=== PATIENT | male | born 1960 | race Caucasian/White ===

== ENCOUNTER 2017-01-16 12:15 | Emergency (ER) | payer OTHER ==
[~2017-01-16] VITALS: Wt 81.6 kg
[~2017-01-16 12:15] MED LIST: ACCUNEB 0.1.25 MG/1 INH; ALBUTEROL0.09 MG/A2 INH; AMOXICILLIN500 MG PO; ANAPROX DS550 MG PO; ASMANEX220 MCG INH; ATIVAN PO; ATIVAN1 MG PO; BACTRIM DS 8001 TA1 PO; CELEXA20 MG PO; CEPHALEXIN500 M1 PO; CLARITIN10 MG PO; CLINDAMYCIN150 MG PO; DARVOCET N 1001 TAB PO; DIFLUCAN100 MG PO; ELIMITE 5%60 GM PO; FLEXERIL10 MG PO; FLEXERIL5 MG PO; FLONASE0.05 MG/AC NS; HYDROCODONE BIT1 T11 PO; KENALOG0.1% TP; LEVOFLOXACIN500 MG PO; LIBRIUM10 MG PO; LIPITOR PO; LISINOPRIL10 M1 PO; LOPRESSOR50 M1 PO; LOPRESSOR50 MG PO; MEDROL DOSEPAK4 MG PO; METOPROLOL100 MG PO; METOPROLOL50 MG PO; MOTRIN800 MG PO; NAPROSYN500 MG PO; NEURONTIN300 MG PO; NORVASC5 MG PO; PEPCID20 MG PO; PREDNICOT20 MG PO; PREDNISONE10 MG PO; PREDNISONE20 M1 PO; PREDNISONE20 MG PO; PREDNISONE50 MG PO; PRILOSEC20 MG PO; PRINIVIL10 MG PO; PROAIR HFA0.09 MG/AC INH; PROAIR HFA8.5 GM INH; ROBAXIN-750750 MG PO; ROBITUSSIN AC 110 ML PO; SIMVASTATIN40 MG PO; THIAMINE HCL50 MG PO; TRAMADOL HCL50 MG PO; TRIMOX500 MG PO; VIBRAMYCIN100 MG PO; VISTARIL25 MG PO; VISTARIL50 MG PO; VITAMIN D2000 IU PO; Ventolin 02.5 MG/3 M INH; ZITHROMAX Z PA250 MG PO; ZOFRAN ODT8 MG PO
[2017-01-16] MEDS ORDERED: CEPHALEXIN500 M1 PO (13:34)
== END 2017-01-16 13:20 | disposition home or self-care (01) ==
LOC: ED 12:15
DX: S61.211A Laceration without foreign body of left index finger without damage to nail, initial encounter (principal); S61.213A Laceration without foreign body of left middle finger without damage to nail, initial encounter; F17.200 Nicotine dependence, unspecified, uncomplicated; W45.8XXA Other foreign body or object entering through skin, initial encounter; Y93.89 Activity, other specified; Y92.9 Unspecified place or not applicable; Y99.9 Unspecified external cause status

== ENCOUNTER → 2017-08-01 | Outpatient (CLI) | payer OTHER | END | disposition home or self-care (01) | LOC: RAD 11:38 | DX: J44.9 Chronic obstructive pulmonary disease, unspecified (principal); I10 Essential (primary) hypertension; Z87.891 Personal history of nicotine dependence ==

== ENCOUNTER 2017-08-21 04:51 | Inpatient (IN) | payer OTHER ==
[2017-08-21] VITALS (14 sets, daily range): BP systolic 128–172; BP diastolic 78–119
[~2017-08-21] VITALS: Ht 182.9 cm; Wt 78.0 kg
--- NOTE | ~2017-08-21 | WRIGHTHP ---
[place], [place] PATIENT HISTORY AND PHYSICAL EXAM NAME: SULY CIFUENTES [facility] #: [id number] UNIT #: [id number] ROOM: 528 DOCTOR: MARIZOL DUBOIS MD BIRTHDATE: [birth year] DOS: 08/21/2017 HISTORY OF PRESENT ILLNESS: The patient has been admitted to hospital as an emergency admission with history of hypertension and excessive drinking. He came to the hospital with some chest pain and difficulty in breathing, and by the investigation found to be having hypertension and needed to be admitted to the hospital. PAST MEDICAL HISTORY: The patient has past history of hypertension and he is also having history of alcoholism, tobacco abuse, fracture of the right ankle, anxiety, neck veins , depression and GERD syndrome. He has also past history of recurring abscess on his body. PAST SURGICAL HISTORY: Past history of left inguinal hernia repair, history of right ankle repair. He has a vince put in his left leg, has plates in both sides of the ankle and left foot. It looks like he is getting into multiple injuries due to too much drinking. MEDICATIONS: He is taking Celexa 20 mg daily, Neurontin 300 mg 3 times daily, Prilosec 20 mg daily, metoprolol 50 mg daily. SOCIAL HISTORY: He drinks about 15-20 beers daily. He smoked 1 pack of cigarettes daily and I discussed with him to stop drinking and smoking, he is saying no, he has to continue, he loves to drink and smoke. FAMILY HISTORY: The patient lives alone. PHYSICAL EXAMINATION: VITAL SIGNS: Blood pressure on admission 172/96, pulse is 94, temperature is 99 and respiration is 20. HEENT: His ENT examination unremarkable. No glandular enlargement in the neck. Trachea is central. NECK: Veins are not distended. HEART: Somewhat tachycardic. No murmur. LUNGS: Showing increased expiration. No crepitation. ABDOMEN: Having some tenderness in the epigastrium. Liver and spleen not enlarged. No other area of tenderness. No mass palpable. LABORATORY DATA: His CBC showed white count 11,300 and other values are fairly satisfactorily. Protime is 10.5, normal. Comprehensive metabolic profile showed glucose 126, sodium is 125, lower than normal, potassium 3.4, lower than normal, chloride is 82, which is higher than normal, total protein is 8.5, albumin 4.5, bilirubin 1.1, SGOT 138, SGPT 93 due to excessive drinking, troponin level is normal. Chest x-ray shows no acute pulmonary disease and his blood pressure now is 153/57, pulse is 110, respirations 20, temperature is 98. DIAGNOSES: Alcohol abuse, tobacco abuse, hypertension, COPD, GERD syndrome and noncompliant behavior. PLAN OF TREATMENT: The patient will be admitted to the hospital. He will have [place], [place] PATIENT HISTORY AND PHYSICAL EXAM NAME: SULY CIFUENTES [facility] #: [id number] UNIT #: [id number] ROOM: 528 DOCTOR: MARIZOL DUBOIS MD BIRTHDATE: [birth year] folic acid, thiamine, lorazepam one tablet 6 hour p.r.n., sodium chloride IV, magnesium sulfate and metoprolol 50 mg daily. MARIZOL DUBOIS MD CM:HISPHYS:PATIENT HISTORY AND PHYSICAL EXAMINATION [id number] MARIZOL DUBOIS MD 08/21/17 1227 interface
[2017-08-21 05:15] LABS: BASO # 0.1 10*3/uL (0.0-0.1); BASO % 0.5 % (0.0-1.0); EOS # 0.2 10*3/uL (0.0-0.4); EOS % 1.3 % (1.0-4.0); HEMATOCRIT 43.2 % (42.0-52.0); HEMOGLOBIN 15.7 g/dl (14.0-18.0); LYMPH # 2.3 10*3/uL (1.3-4.4); LYMPH % 20.6 % (27.0-41.0); MEAN CELL VOLUME 92.3 fl (80.0-94.0); MEAN CORPUSCULAR HGB 33.5 pg (27.0-31.0); MEAN CORPUSCULAR HGB CONC 36.3 g/dl (33.0-37.0); MEAN PLATELET VOLUME 10.7 fl (9.6-12.3); MONO # 1.2 10*3/uL (0.1-1.0); NEUT # 7.4 10*3/uL (2.3-7.9); NEUT % 66.2 % (47.0-73.0); PLATELET COUNT AUTOMATED 187 10*3/uL (130-400); RED BLOOD COUNT 4.68 10*6/uL (4.50-5.90); RED CELL DISTRI WIDTH 12.8 % (0-14.5); WHITE BLOOD COUNT 11.3 10*3/uL (4.8-10.8)
[2017-08-21 05:23] LABS: ACT PARTIAL THROMBO TIME 27.4 SECONDS (20.8-31.5)
[2017-08-21 05:32] LABS: ALBUMIN 4.6 gm/dl (3.1-4.5); ALKALINE PHOSPHATASE 112 U/L (45-117); BUN 9 mg/dl (7-24); CHLORIDE 82 mmol/L (98-107); CREATININE 0.85 mg/dL (0.70-1.30); POTASSIUM 3.4 mmol/L (3.5-5.1); SGOT/AST 138 IU/L (3-35); SGPT/ALT 93 U/L (12-78); SODIUM 125 mmol/L (136-145); TOTAL PROTEIN 8.5 gm/dL (6.4-8.2)
[2017-08-21 05:35] LABS: TROPONIN I < 0.015 ng/ml (<0.045)
--- NOTE | 2017-08-21 09:18 | NUR ---
PATIENT ARRIVED ON UNIT EXPERIENCING DELERIUM TREMONS AND ADMITTED TO [facility] DRINKING OVER THE WEEKEND. STATED HE DRANK 18 BEERS ON TUESDAY AND TUESDAY. HE ALSO STATED THAT HE DRINKS 4 BEERS A DAY THROUGH THE WEEK. NOTIFIED DR. BARGER ABOUT PATIENTS CONDITION, SEE NEW ORDERS.
--- NOTE | 2017-08-21 10:00 | NUR ---
ATIVAN EFFECTIVE DT'S HAVE SUBSIDED.
--- NOTE | 2017-08-21 16:59 | NUR ---
PRN ATIVAN GIVEN FOR ALCOHOL WITHDRAWAL SYMPTOMS, SWEATING, DT'S. WILL MONITOR.
--- NOTE | 2017-08-21 17:08 | NUR ---
I CAUGHT PATIENT SMOKING IN THE BATHROOM. EXPLAINED TO HIM WHY THERE IS A NO SMOKING POLICY IN THE HOSPITAL. 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 PATIENT WAS ALSO EXPERIENCING HALLUCINATIONS BECAUSE HE HAD ME LOOK AT ALL OF THE WHITE BUGS BEHIND THE TOILET AND IN THE SHOWER.
--- NOTE | 2017-08-21 17:40 | NUR ---
PATIENT CAME UP TO THE NURSES STATION HOLD HIS IV SITE THAT WAS DRIPPING WITH BLOOD. HIS FRONT SIDE WAS COVERED IN BLOOD. HE TRACKED BLOOD DOWN THROUGH THE HALLWAY AND HIS ROOM WAS FILLED WITH PUDDLES OF BLOOD. HOUSEKEEPING WAS CALLED. AND I CALLED FOR THE CHARGE NURSE TO HELP. WHEN I WAS ASSESSING THE PATIENT I NOTICED THAT HIS IV LINE WAS BURNT AT THE CONNECTION SITE OF THE HEP LOCK. CATHERTER WAS REMOVED COMPLETELY INTACT. WITHIN MINUTES OF THAT EVENT, THE PATIENT LEFT AMA. PHYSICIAN WAS NOTIFIED, NURSING VENTILATION EQUIPMENT TENDER WAS NOTIFIED.
--- NOTE | 2017-08-21 18:15 | NUR ---
DR. DUBOIS AND NURSING DRUG COORDINATOR WAS NOTIFIED THAT PATIENT LEFT AMA.
== END 2017-08-21 17:40 | disposition left against medical advice (07) | DRG 641 ==
LOC: ED 04:51 → EDHOLD 08:27 → 5E 08:27
PROVIDERS: Student in an Organized Health Care Education/Training Program; ADMIT Internal Medicine
DX: E87.1 Hypo-osmolality and hyponatremia (principal); I45.81 Long QT syndrome; J44.9 Chronic obstructive pulmonary disease, unspecified; F10.10 Alcohol abuse, uncomplicated; K21.9 Gastro-esophageal reflux disease without esophagitis; F41.9 Anxiety disorder, unspecified; F17.210 Nicotine dependence, cigarettes, uncomplicated; I10 Essential (primary) hypertension; Z60.2 Problems related to living alone; Z53.21 Procedure and treatment not carried out due to patient leaving prior to being seen by health care provider; Z71.6 Tobacco abuse counseling; Z87.81 Personal history of (healed) traumatic fracture

== ENCOUNTER 2018-05-06 14:48 | Emergency (ER) | payer OTHER ==
[~2018-05-06] VITALS: Ht 182.8 cm; Wt 82.6 kg
[2018-05-06] MEDS ORDERED: Orphenadrine C100 MG PO (16:19)
[2018-05-06] MEDS ORDERED: NAPROSYN500 MG PO (16:19)
== END 2018-05-06 16:21 | disposition home or self-care (01) ==
LOC: ED 14:48
DX: S16.1XXA Strain of muscle, fascia and tendon at neck level, initial encounter (principal); J44.9 Chronic obstructive pulmonary disease, unspecified; F17.200 Nicotine dependence, unspecified, uncomplicated; Z79.899 Other long term (current) drug therapy; W11.XXXA Fall on and from ladder, initial encounter; Y93.89 Activity, other specified; Y92.89 Other specified places as the place of occurrence of the external cause; Y99.8 Other external cause status

== ENCOUNTER 2018-05-17 00:42 | Emergency (ER) | payer OTHER ==
[~2018-05-17] VITALS: Wt 72.6 kg
--- NOTE | ~2018-05-17 | EKG ---
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
[~2018-05-17 00:42] MED LIST changes: +Orphenadrine C100 MG PO
[2018-05-17 01:37] LABS: BILIRUBIN NEGATIVE (NEGATIVE); BLOOD 3+ (NEGATIVE); CLARITY SL CLOUDY (CLEAR); COLOR YELLOW (YELLOW); GLUCOSE NEGATIVE (NEGATIVE); KETONE NEGATIVE (NEGATIVE); LEUKO ESTERASE NEGATIVE (NEGATIVE); NITRITE NEGATIVE (NEGATIVE); UROBILINOGEN 0.2 E.U./dl (0.2-1.0)
[2018-05-17 01:49] LABS: URINE AMPHETAMINES < 1000 (1000ng/ml); URINE BARBITURATES < 200 (200ng/ml); URINE BENZODIAZEPINES < 200 (200ng/ml); URINE CANNABINOIDS (THC) < 50 (50ng/ml); URINE COCAINE < 300 (300ng/ml); URINE METHADONE < 300 (300ng/ml); URINE OPIATES < 300 (300ng/ml)
[2018-05-17 01:57] LABS: BASO # 0.2 10*3/uL (0.0-0.1); BASO % 0.9 % (0.0-1.0); EOS # 0.3 10*3/uL (0.0-0.4); EOS % 1.8 % (1.0-4.0); HEMATOCRIT 40.5 % (42.0-52.0); HEMOGLOBIN 13.9 g/dl (14.0-18.0); LYMPH # 3.5 10*3/uL (1.3-4.4); MEAN CELL VOLUME 97.8 fl (80.0-94.0); MEAN CORPUSCULAR HGB 33.6 pg (27.0-31.0); MEAN CORPUSCULAR HGB CONC 34.3 g/dl (33.0-37.0); MEAN PLATELET VOLUME 11.2 fl (9.6-12.3); NEUT # 12.3 10*3/uL (2.3-7.9); NEUT % 70.7 % (47.0-73.0); PLATELET COUNT AUTOMATED 160 10*3/uL (130-400); RED BLOOD COUNT 4.14 10*6/uL (4.50-5.90); RED CELL DISTRI WIDTH 12.8 % (0-14.5); WHITE BLOOD COUNT 17.3 10*3/uL (4.8-10.8)
[2018-05-17 01:59] LABS: URINE PHENCYCLIDINE < 25 (25ng/ml)
[2018-05-17 02:06] LABS: ACT PARTIAL THROMBO TIME 29.7 SECONDS (20.8-31.5); INTERNATIONAL NORM RATIO 0.9 (2.0-3.5)
[2018-05-17 02:15] LABS: ALKALINE PHOSPHATASE 102 U/L (45-117); BUN 6 mg/dl (7-24); CHLORIDE 93 mmol/L (98-107); CREATININE 0.72 mg/dL (0.70-1.30); POTASSIUM 3.7 mmol/L (3.5-5.1); SGOT/AST 337 IU/L (3-35); SGPT/ALT 184 U/L (12-78); SODIUM 131 mmol/L (136-145); TOTAL PROTEIN 7.5 gm/dL (6.4-8.2); TROPONIN I < 0.015 ng/ml (<0.045)
== END 2018-05-17 05:18 | disposition short-term general hospital (02) ==
LOC: ED 00:42
PROVIDERS: Student in an Organized Health Care Education/Training Program
DX: S06.5X0A Traumatic subdural hemorrhage without loss of consciousness, initial encounter (principal); S02.81XA Fracture of other specified skull and facial bones, right side, initial encounter for closed fracture; J96.90 Respiratory failure, unspecified, unspecified whether with hypoxia or hypercapnia; J93.0 Spontaneous tension pneumothorax; Z98.890 Other specified postprocedural states; Z79.899 Other long term (current) drug therapy; Y04.0XXA Assault by unarmed brawl or fight, initial encounter; Y93.89 Activity, other specified; Y92.89 Other specified places as the place of occurrence of the external cause; Y99.9 Unspecified external cause status

== ENCOUNTER 2018-09-07 08:30 | Emergency (ER) | payer OTHER ==
[~2018-09-07] VITALS: Ht 182.8 cm; Wt 80.7 kg
[2018-09-07] MEDS ORDERED: AEROECLIPSE II1 EACH MC (09:04)
[2018-09-07] MEDS ORDERED: AVPAK AZITHROM250 MG PO (09:04)
[2018-09-07] MEDS ORDERED: PREDNISONE50 MG PO (09:04)
[2018-09-07] MEDS ORDERED: LOTRIMIN 1%15 GM T (09:30)
== END 2018-09-07 09:59 | disposition home or self-care (01) ==
LOC: ED 08:30
DX: J44.1 Chronic obstructive pulmonary disease with (acute) exacerbation (principal); B35.9 Dermatophytosis, unspecified; F17.200 Nicotine dependence, unspecified, uncomplicated; Z79.899 Other long term (current) drug therapy

== ENCOUNTER → 2018-11-09 | Outpatient (CLI) | payer OTHER ==
[~2018-11-09] MED LIST changes: +AEROECLIPSE II1 EACH MC; +AVPAK AZITHROM250 MG PO; +LOTRIMIN 1%15 GM T
[2018-11-09 08:03] LABS: ALBUMIN 3.9 gm/dl (3.1-4.5); ALKALINE PHOSPHATASE 71 U/L (45-117); BUN 7 mg/dl (7-24); CHLORIDE 105 mmol/L (98-107); CREATININE 0.85 mg/dL (0.70-1.30); POTASSIUM 4.3 mmol/L (3.5-5.1); SGOT/AST 18 IU/L (3-35); SGPT/ALT 22 U/L (12-78); SODIUM 142 mmol/L (136-145); TOTAL PROTEIN 7.5 gm/dL (6.4-8.2)
[2018-11-10 08:14] LABS: HEPATITIS B SURFACE AG Negative (Negative); HEPATITIS C VIRUS ANTIBODY 0.1 s/co (0.0-0.9)
== END | disposition home or self-care (01) ==
LOC: LAB 07:08 → US 07:30
PROVIDERS: Internal Medicine
DX: K76.0 Fatty (change of) liver, not elsewhere classified (principal); M25.511 Pain in right shoulder; W19.XXXA Unspecified fall, initial encounter

== ENCOUNTER → 2018-11-16 | Outpatient (CLI) | payer OTHER ==
[2018-11-16 10:28] LABS: BASO # 0.1 10*3/uL (0.0-0.1); BASO % 1.5 % (0.0-1.0); EOS # 0.6 10*3/uL (0.0-0.4); EOS % 6.9 % (1.0-4.0); HEMATOCRIT 44.8 % (42.0-52.0); HEMOGLOBIN 14.8 g/dl (14.0-18.0); LYMPH # 3.6 10*3/uL (1.3-4.4); LYMPH % 42.3 % (27.0-41.0); MEAN CELL VOLUME 99.8 fl (80.0-94.0); MEAN PLATELET VOLUME 11.6 fl (9.6-12.3); MONO % 11.3 % (3.0-9.0); NEUT # 3.2 10*3/uL (2.3-7.9); NEUT % 37.8 % (47.0-73.0); PLATELET COUNT AUTOMATED 183 10*3/uL (130-400); RED BLOOD COUNT 4.49 10*6/uL (4.50-5.90); RED CELL DISTRI WIDTH 12.4 % (0-14.5); WHITE BLOOD COUNT 8.5 10*3/uL (4.8-10.8)
== END | disposition home or self-care (01) ==
LOC: LAB 10:05
PROVIDERS: Internal Medicine
DX: J18.1 Lobar pneumonia, unspecified organism (principal); D75.1 Secondary polycythemia; I10 Essential (primary) hypertension; J44.9 Chronic obstructive pulmonary disease, unspecified; F17.210 Nicotine dependence, cigarettes, uncomplicated

== ENCOUNTER 2019-03-07 13:08 | Emergency (ER) | payer OTHER ==
[~2019-03-07] VITALS: Ht 182.8 cm; Wt 82.6 kg
[2019-03-07] MEDS ORDERED: IBUPROFEN600 MG PO (18:06)
[2019-03-07] MEDS ORDERED: ROBAXIN500 M1 PO (18:06)
== END 2019-03-07 18:15 | disposition home or self-care (01) ==
LOC: ED 13:08
DX: S13.4XXA Sprain of ligaments of cervical spine, initial encounter (principal); M62.838 Other muscle spasm; Z79.899 Other long term (current) drug therapy; W18.31XA Fall on same level due to stepping on an object, initial encounter; Y93.89 Activity, other specified; Y92.89 Other specified places as the place of occurrence of the external cause; Y99.8 Other external cause status

== ENCOUNTER 2019-05-05 22:22 | Emergency (ER) | payer OTHER ==
[~2019-05-05] VITALS: Ht 182.8 cm; Wt 68.0 kg
--- NOTE | ~2019-05-05 | EKG ---
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
[~2019-05-05 22:22] MED LIST changes: +IBUPROFEN600 MG PO; +ROBAXIN500 M1 PO
[2019-05-05 23:03] LABS: HEMATOCRIT 39.3 % (42.0-52.0); HEMOGLOBIN 13.4 g/dl (14.0-18.0); MEAN CORPUSCULAR HGB 33.1 pg (27.0-31.0); MEAN CORPUSCULAR HGB CONC 34.1 g/dl (33.0-37.0); MEAN PLATELET VOLUME 10.8 fl (9.6-12.3); PLATELET COUNT AUTOMATED 167 10*3/uL (130-400); RED BLOOD COUNT 4.05 10*6/uL (4.50-5.90); RED CELL DISTRI WIDTH 13.3 % (0-14.5); WHITE BLOOD COUNT 11.3 10*3/uL (4.8-10.8)
[2019-05-05 23:14] LABS: ACT PARTIAL THROMBO TIME 24.8 SECONDS (20.0-32.1)
[2019-05-05 23:20] LABS: ALBUMIN 3.5 gm/dl (3.1-4.5); ALKALINE PHOSPHATASE 75 U/L (45-117); BUN 11 mg/dl (7-24); CHLORIDE 112 mmol/L (98-107); CREATININE 0.79 mg/dL (0.70-1.30); POTASSIUM 3.7 mmol/L (3.5-5.1); SGOT/AST 54 IU/L (3-35); SGPT/ALT 37 U/L (12-78); SODIUM 145 mmol/L (136-145); TOTAL PROTEIN 6.9 gm/dL (6.4-8.2)
[2019-05-05 23:21] LABS: BASOPHILS 1 % (0-1); TOTAL CELLS COUNTED 100 #CELLS
[2019-05-05 23:22] LABS: PLATELET SUFFICIENCY NORMAL (NORMAL)
[2019-05-05 23:24] LABS: TROPONIN I < 0.015 ng/ml (<0.045)
== END 2019-05-05 23:10 | disposition left against medical advice (07) ==
LOC: ED 22:22
PROVIDERS: Emergency Medicine Emergency Medical Services
DX: R07.89 Other chest pain (principal); F10.129 Alcohol abuse with intoxication, unspecified; J44.9 Chronic obstructive pulmonary disease, unspecified; I25.10 Atherosclerotic heart disease of native coronary artery without angina pectoris; F17.210 Nicotine dependence, cigarettes, uncomplicated; Z79.899 Other long term (current) drug therapy; Z79.82 Long term (current) use of aspirin

== ENCOUNTER 2019-11-23 15:30 | Emergency (ER) | payer OTHER ==
[~2019-11-23] VITALS: Ht 185.4 cm; Wt 78.0 kg
== END 2019-11-23 16:53 | disposition left against medical advice (07) ==
LOC: ED 15:30
DX: S00.03XA Contusion of scalp, initial encounter (principal); K21.9 Gastro-esophageal reflux disease without esophagitis; J44.9 Chronic obstructive pulmonary disease, unspecified; I10 Essential (primary) hypertension; Z79.899 Other long term (current) drug therapy; W18.39XA Other fall on same level, initial encounter; Y93.01 Activity, walking, marching and hiking; Y92.89 Other specified places as the place of occurrence of the external cause; Y99.8 Other external cause status

== ENCOUNTER 2020-06-24 21:27 | Emergency (ER) | payer OTHER | END 2020-06-25 09:02 | disposition home or self-care (01) | LOC: ED 21:27 | DX: S01.01XA Laceration without foreign body of scalp, initial encounter (principal); Z79.899 Other long term (current) drug therapy; X58.XXXA Exposure to other specified factors, initial encounter; Y93.89 Activity, other specified; Y92.89 Other specified places as the place of occurrence of the external cause; Y99.8 Other external cause status ==

== ENCOUNTER 2020-12-30 19:36 | Inpatient (IN) | payer OTHER ==
[~2020-12-30] VITALS: Ht 185.4 cm; Wt 65.5 kg
[2020-12-30 19:49] VITALS: BP 147/104
[2020-12-30 19:55] LABS: BASO # 0.1 10*3/uL (0.0-0.1); BASO % 1.3 % (0.0-1.0); EOS # 0.1 10*3/uL (0.0-0.4); EOS % 0.9 % (1.0-4.0); HEMATOCRIT 43.8 % (42.0-52.0); LYMPH # 2.4 10*3/uL (1.3-4.4); LYMPH % 27.7 % (27.0-41.0); MEAN CELL VOLUME 95.6 fl (80.0-94.0); MEAN CORPUSCULAR HGB 33.4 pg (27.0-31.0); MEAN CORPUSCULAR HGB CONC 34.9 g/dl (33.0-37.0); MEAN PLATELET VOLUME 10.7 fl (9.6-12.3); MONO # 0.9 10*3/uL (0.1-1.0); MONO % 10.4 % (3.0-9.0); NEUT # 5.1 10*3/uL (2.3-7.9); NEUT % 59.5 % (47.0-73.0); PLATELET COUNT AUTOMATED 189 10*3/uL (130-400); RED BLOOD COUNT 4.58 10*6/uL (4.50-5.90); RED CELL DISTRI WIDTH 12.7 % (0-14.5); WHITE BLOOD COUNT 8.5 10*3/uL (4.8-10.8)
[2020-12-30 20:09] LABS: ACT PARTIAL THROMBO TIME 30.2 SECONDS (20.0-32.1); INTERNATIONAL NORM RATIO 0.9 (2.0-3.5)
[2020-12-30 20:13] LABS: ALBUMIN 3.5 gm/dl (3.1-4.5); ALKALINE PHOSPHATASE 98 U/L (45-117); BUN 5 mg/dl (7-24); CHLORIDE 94 mmol/L (98-107); CREATININE 0.73 mg/dL (0.70-1.30); POTASSIUM 3.9 mmol/L (3.5-5.1); SGOT/AST 53 IU/L (3-35); SGPT/ALT 42 U/L (12-78); SODIUM 129 mmol/L (136-145); TOTAL PROTEIN 7.5 gm/dL (6.4-8.2)
[2020-12-30 20:16] LABS: TROPONIN I 0.107 ng/ml (<0.045)
[2020-12-30 20:20] VITALS: BP 151/95
[2020-12-30 20:50] VITALS: BP 122/77
[2020-12-30 21:20] VITALS: BP 98/64
[2020-12-30 21:30] VITALS: BP 132/82
[2020-12-31] VITALS (11 sets, daily range): BP systolic 117–183; BP diastolic 74–100
[2020-12-31 04:47] LABS: BASO # 0.1 10*3/uL (0.0-0.1); BASO % 1.6 % (0.0-1.0); EOS # 0.2 10*3/uL (0.0-0.4); HEMATOCRIT 40.9 % (42.0-52.0); LYMPH # 3.1 10*3/uL (1.3-4.4); LYMPH % 49.4 % (27.0-41.0); MEAN CELL VOLUME 95.8 fl (80.0-94.0); MEAN CORPUSCULAR HGB 33.7 pg (27.0-31.0); MEAN CORPUSCULAR HGB CONC 35.2 g/dl (33.0-37.0); MEAN PLATELET VOLUME 10.9 fl (9.6-12.3); MONO # 0.8 10*3/uL (0.1-1.0); MONO % 12.8 % (3.0-9.0); NEUT # 2.1 10*3/uL (2.3-7.9); PLATELET COUNT AUTOMATED 169 10*3/uL (130-400); RED BLOOD COUNT 4.27 10*6/uL (4.50-5.90); RED CELL DISTRI WIDTH 12.8 % (0-14.5); WHITE BLOOD COUNT 6.2 10*3/uL (4.8-10.8)
[2020-12-31 04:59] LABS: BUN 5 mg/dl (7-24); CHLORIDE 101 mmol/L (98-107); POTASSIUM 3.8 mmol/L (3.5-5.1); SODIUM 133 mmol/L (136-145)
[2020-12-31] MEDS ORDERED: ATORVASTATIN CA80 M1 PO (10:18)
[2020-12-31] MEDS ORDERED: LOSARTAN POTAS100 M1 PO (10:18)
[2020-12-31] MEDS ORDERED: AMLODIPINE BESYL5 MG PO (10:18)
[2020-12-31] MEDS ORDERED: NEURONTIN300 MG PO (10:18)
[2020-12-31] MEDS ORDERED: TRAZODONE50 MG PO (10:19)
[2021-01-01] VITALS: BP 160/92; BP 162/90
== END 2021-01-01 06:18 | disposition left against medical advice (07) | DRG 190 ==
LOC: ED 19:36 → 5E 12-31 00:32 → EDHOLD 12-31 00:32 → 5E 12-31 13:39
PROVIDERS: Emergency Medicine; Internal Medicine; Internal Medicine Nephrology; ADMIT Internal Medicine; ATTEND Internal Medicine
DX: I21.4 Non-ST elevation (NSTEMI) myocardial infarction (principal); J44.1 Chronic obstructive pulmonary disease with (acute) exacerbation; E87.1 Hypo-osmolality and hyponatremia; F10.929 Alcohol use, unspecified with intoxication, unspecified; I10 Essential (primary) hypertension; K21.9 Gastro-esophageal reflux disease without esophagitis; R00.0 Tachycardia, unspecified; E78.5 Hyperlipidemia, unspecified; F17.210 Nicotine dependence, cigarettes, uncomplicated; Z79.899 Other long term (current) drug therapy; Z71.6 Tobacco abuse counseling; Z53.29 Procedure and treatment not carried out because of patient's decision for other reasons; E83.51 Hypocalcemia; R65.11 Systemic inflammatory response syndrome (SIRS) of non-infectious origin with acute organ dysfunction

== ENCOUNTER 2021-01-03 01:15 | Observation (INO) | payer OTHER ==
[~2021-01-03] VITALS: Ht 185.4 cm; Wt 67.6 kg
[2021-01-03] VITALS (11 sets, daily range): BP systolic 90–156; BP diastolic 58–101
[~2021-01-03 01:15] MED LIST changes: +AMLODIPINE BESYL5 MG PO; +ATORVASTATIN CA80 M1 PO; +LOSARTAN POTAS100 M1 PO; +TRAZODONE50 MG PO
[2021-01-03 01:31] LABS: HEMATOCRIT 42.8 % (42.0-52.0); MEAN CELL VOLUME 96.6 fl (80.0-94.0); MEAN CORPUSCULAR HGB 34.1 pg (27.0-31.0); MEAN CORPUSCULAR HGB CONC 35.3 g/dl (33.0-37.0); MEAN PLATELET VOLUME 11.2 fl (9.6-12.3); PLATELET COUNT AUTOMATED 141 10*3/uL (130-400); RED BLOOD COUNT 4.43 10*6/uL (4.50-5.90); RED CELL DISTRI WIDTH 12.3 % (0-14.5); WHITE BLOOD COUNT 11.6 10*3/uL (4.8-10.8)
[2021-01-03 02:11] LABS: ACT PARTIAL THROMBO TIME 27.3 SECONDS (20.0-32.1); INTERNATIONAL NORM RATIO 0.9 (2.0-3.5)
[2021-01-03 02:23] LABS: PLATELET SUFFICIENCY NORMAL (NORMAL); TOTAL CELLS COUNTED 100 #CELLS
[2021-01-03 02:43] LABS: ALKALINE PHOSPHATASE 97 U/L (45-117); BUN 5 mg/dl (7-24); CHLORIDE 96 mmol/L (98-107); CREATININE 0.71 mg/dL (0.70-1.30); POTASSIUM 3.2 mmol/L (3.5-5.1); SGOT/AST 82 IU/L (3-35); SGPT/ALT 58 U/L (12-78); SODIUM 132 mmol/L (136-145); TOTAL PROTEIN 7.8 gm/dL (6.4-8.2)
[2021-01-03 02:46] LABS: TROPONIN I < 0.015 ng/ml (<0.045)
[2021-01-03] MEDS ORDERED: PROAIR HFA8.5 GM INH (04:45)
[2021-01-03] MEDS ORDERED: LIPITOR80 MG PO (04:45)
[2021-01-03] MEDS ORDERED: NORVASC5 MG PO (04:45)
[2021-01-03] MEDS ORDERED: COZAAR100 MG PO (04:46)
[2021-01-03] MEDS ORDERED: NEURONTIN300 MG PO (04:46)
[2021-01-03] MEDS ORDERED: LOPRESSOR25 MG PO (04:47)
[2021-01-03] MEDS ORDERED: OMEPRAZOLE MAGN20 MG PO (04:47)
[2021-01-03] MEDS ORDERED: TRAZODONE50 MG PO (04:48)
[2021-01-03] MEDS ORDERED: VENTOLIN 02.5 MG/3 M INH (04:49)
[2021-01-03] MEDS ORDERED: VITAMIN D350 MCG PO (04:50)
[2021-01-04] VITALS: BP 162/95
[2021-01-04 05:12] LABS: BUN 10 mg/dl (7-24); CHLORIDE 108 mmol/L (98-107); CREATININE 0.63 mg/dL (0.70-1.30); POTASSIUM 3.9 mmol/L (3.5-5.1); SODIUM 137 mmol/L (136-145)
[2021-01-04 05:13] LABS: BASO # 0.1 10*3/uL (0.0-0.1); EOS # 0.3 10*3/uL (0.0-0.4); EOS % 3.1 % (1.0-4.0); HEMATOCRIT 39.8 % (42.0-52.0); LYMPH # 3.8 10*3/uL (1.3-4.4); LYMPH % 41.4 % (27.0-41.0); MEAN CORPUSCULAR HGB 33.8 pg (27.0-31.0); MEAN CORPUSCULAR HGB CONC 34.2 g/dl (33.0-37.0); MEAN PLATELET VOLUME 11.5 fl (9.6-12.3); MONO # 1.1 10*3/uL (0.1-1.0); MONO % 11.6 % (3.0-9.0); NEUT # 3.9 10*3/uL (2.3-7.9); NEUT % 42.4 % (47.0-73.0); PLATELET COUNT AUTOMATED 120 10*3/uL (130-400); RED BLOOD COUNT 4.02 10*6/uL (4.50-5.90); RED CELL DISTRI WIDTH 12.7 % (0-14.5); WHITE BLOOD COUNT 9.2 10*3/uL (4.8-10.8)
[2021-01-04 08:00] VITALS: BP 172/80
[2021-01-04 12:00] VITALS: BP 158/98
[2021-01-04 16:00] VITALS: BP 155/90
[2021-01-04 20:00] VITALS: BP 157/91
[2021-01-05] VITALS: BP 169/89
[2021-01-05 06:33] LABS: BUN 10 mg/dl (7-24); CHLORIDE 105 mmol/L (98-107); CREATININE 0.66 mg/dL (0.70-1.30); POTASSIUM 3.5 mmol/L (3.5-5.1); SODIUM 136 mmol/L (136-145)
[2021-01-05 08:00] VITALS: BP 140/80
[2021-01-05 12:00] VITALS: BP 138/97
[2021-01-05 16:00] VITALS: BP 151/32
[2021-01-05 20:00] VITALS: BP 176/90
[2021-01-05 22:58] VITALS: BP 152/70
[2021-01-06] VITALS: BP 167/92
[2021-01-06 08:00] VITALS: BP 166/94
== END 2021-01-06 09:44 | disposition short-term general hospital (02) ==
LOC: ED 01:15 → EDHOLD 03:51 → 5E 06:50
PROVIDERS: Emergency Medicine; Internal Medicine; ADMIT Internal Medicine; ATTEND Internal Medicine
DX: I21.4 Non-ST elevation (NSTEMI) myocardial infarction (principal); J44.1 Chronic obstructive pulmonary disease with (acute) exacerbation; F10.129 Alcohol abuse with intoxication, unspecified; K21.9 Gastro-esophageal reflux disease without esophagitis; E87.6 Hypokalemia; F17.200 Nicotine dependence, unspecified, uncomplicated; I10 Essential (primary) hypertension; E78.2 Mixed hyperlipidemia; E55.9 Vitamin D deficiency, unspecified; Z86.79 Personal history of other diseases of the circulatory system; Z87.820 Personal history of traumatic brain injury; Z87.828 Personal history of other (healed) physical injury and trauma

== ENCOUNTER 2022-08-17 21:55 | Emergency (ER) | payer SELFPAY ==
[~2022-08-17] VITALS: Ht 177.8 cm; Wt 72.6 kg
[~2022-08-17 21:55] MED LIST changes: +COZAAR100 MG PO; +LIPITOR80 MG PO; +LOPRESSOR25 MG PO; +OMEPRAZOLE MAGN20 MG PO; +VENTOLIN 02.5 MG/3 M INH; +VITAMIN D350 MCG PO
[2022-08-17 22:26] LABS: BASO # 0.1 10*3/uL (0.0-0.1); BASO % 0.9 % (0.0-1.0); EOS # 0.2 10*3/uL (0.0-0.4); EOS % 1.3 % (1.0-4.0); HEMATOCRIT 42.3 % (42.0-52.0); LYMPH % 36.2 % (27.0-41.0); MEAN CELL VOLUME 93.2 fl (80.0-94.0); MEAN CORPUSCULAR HGB 31.7 pg (27.0-31.0); MEAN PLATELET VOLUME 10.6 fl (9.6-12.3); MONO # 1.2 10*3/uL (0.1-1.0); NEUT # 7.2 10*3/uL (2.3-7.9); NEUT % 52.2 % (47.0-73.0); PLATELET COUNT AUTOMATED 338 10*3/uL (130-400); RED BLOOD COUNT 4.54 10*6/uL (4.50-5.90); RED CELL DISTRI WIDTH 12.8 % (0-14.5); WHITE BLOOD COUNT 13.8 10*3/uL (4.8-10.8)
[2022-08-17 22:43] LABS: ALKALINE PHOSPHATASE 73 U/L (45-117); BUN 4 mg/dl (7-24); CHLORIDE 103 mmol/L (98-107); CREATININE 0.62 mg/dL (0.70-1.30); POTASSIUM 3.3 mmol/L (3.5-5.1); SGOT/AST 14 IU/L (3-35); SGPT/ALT 20 U/L (12-78); SODIUM 134 mmol/L (136-145); TOTAL PROTEIN 7.6 gm/dL (6.4-8.2)
[2022-08-18] MEDS ORDERED: PREDNISONE20 M1 PO ×2 (00:15→00:33)
[2022-08-18] MEDS ORDERED: ZITHROMAX250 MG PO ×2 (00:15→00:33)
== END 2022-08-18 00:38 | disposition home or self-care (01) ==
LOC: ED 21:55
PROVIDERS: Internal Medicine
DX: J06.9 Acute upper respiratory infection, unspecified (principal); Z20.822 Contact with and (suspected) exposure to COVID-19; D72.829 Elevated white blood cell count, unspecified; E87.8 Other disorders of electrolyte and fluid balance, not elsewhere classified; R79.82 Elevated C-reactive protein (CRP); R00.0 Tachycardia, unspecified; F17.200 Nicotine dependence, unspecified, uncomplicated; Z79.899 Other long term (current) drug therapy; Z98.890 Other specified postprocedural states

== ENCOUNTER 2022-09-30 00:10 | Emergency (ER) | payer MEDICAID ==
[~2022-09-30 00:10] MED LIST changes: +ZITHROMAX250 MG PO
[2022-09-30 00:31] LABS: MEAN CELL VOLUME 94.2 fl (80.0-94.0); MEAN CORPUSCULAR HGB 32.1 pg (27.0-31.0); MEAN PLATELET VOLUME 10.3 fl (9.6-12.3); PLATELET COUNT AUTOMATED 244 10*3/uL (130-400); RED BLOOD COUNT 4.99 10*6/uL (4.50-5.90); RED CELL DISTRI WIDTH 13.4 % (0-14.5); WHITE BLOOD COUNT 10.6 10*3/uL (4.8-10.8)
[2022-09-30 00:37] LABS: MANUAL DIFF REFLEX YES
[2022-09-30 00:51] LABS: ATYPICAL LYMPHS 1 % (0-0); PLATELET SUFFICIENCY NORMAL (NORMAL); TOTAL CELLS COUNTED 100 #CELLS
[2022-09-30 01:09] LABS: ALKALINE PHOSPHATASE 76 U/L (46-116); BUN 7 mg/dl (9-23); CHLORIDE 96 mmol/L (98-107); CREATININE 0.71 mg/dL (0.70-1.30); POTASSIUM 3.9 mmol/L (3.4-5.1); SGPT/ALT 17 U/L (10-49); SODIUM 131 mmol/L (136-145); TOTAL PROTEIN 7.1 gm/dL (6.0-8.0)
[2022-09-30 01:14] LABS: ETHYL ALCOHOL 396.5 mg/dl (<3)
== END 2022-09-30 10:00 | disposition home or self-care (01) ==
LOC: ED 00:10
PROVIDERS: Emergency Medicine
DX: S09.90XA Unspecified injury of head, initial encounter (principal); F10.129 Alcohol abuse with intoxication, unspecified; E87.1 Hypo-osmolality and hyponatremia; F17.200 Nicotine dependence, unspecified, uncomplicated; Y90.8 Blood alcohol level of 240 mg/100 ml or more; Z98.890 Other specified postprocedural states; W19.XXXA Unspecified fall, initial encounter; Y93.89 Activity, other specified; Y92.89 Other specified places as the place of occurrence of the external cause; Y99.8 Other external cause status

== ENCOUNTER → 2023-01-06 | Outpatient (CLI) | payer OTHER ==
[2023-01-12 00:06] LABS: TESTOSTERONE FREE, (DIRECT) 8.4 pg/mL (6.6-18.1)
== END | disposition home or self-care (01) ==
LOC: LAB 07:14
PROVIDERS: ATTEND Internal Medicine
DX: Z12.5 Encounter for screening for malignant neoplasm of prostate (principal); R53.83 Other fatigue

== ENCOUNTER → 2023-02-01 | Outpatient (CLI) | payer OTHER | END | disposition home or self-care (01) | LOC: RAD 10:05 | PROVIDERS: ATTEND Internal Medicine | DX: M47.816 Spondylosis without myelopathy or radiculopathy, lumbar region (principal); M25.78 Osteophyte, vertebrae; M54.2 Cervicalgia ==

== ENCOUNTER → 2023-04-06 | Outpatient (CLI) | payer OTHER | END | disposition home or self-care (01) | LOC: LAB 03-16 01:05 → CT 03-16 09:00 → LAB 00:32 | PROVIDERS: ATTEND Internal Medicine | DX: J43.8 Other emphysema (principal); R91.1 Solitary pulmonary nodule; K76.0 Fatty (change of) liver, not elsewhere classified; J43.9 Emphysema, unspecified ==

== ENCOUNTER → 2023-05-19 | Outpatient (CLI) | payer OTHER ==
[2023-05-19 10:40] LABS: BASO # 0.2 10*3/uL (0.0-0.1); BASO % 2.1 % (0.0-1.0); EOS # 0.3 10*3/uL (0.0-0.4); EOS % 3.6 % (1.0-4.0); HEMATOCRIT 45.7 % (42.0-52.0); LYMPH # 3.1 10*3/uL (1.3-4.4); LYMPH % 42.3 % (27.0-41.0); MEAN CELL VOLUME 97.4 fl (80.0-94.0); MEAN CORPUSCULAR HGB 33.7 pg (27.0-31.0); MEAN CORPUSCULAR HGB CONC 34.6 g/dl (33.0-37.0); MEAN PLATELET VOLUME 10.1 fl (9.6-12.3); MONO # 0.8 10*3/uL (0.1-1.0); MONO % 11.1 % (3.0-9.0); NEUT # 2.9 10*3/uL (2.3-7.9); NEUT % 40.8 % (47.0-73.0); PLATELET COUNT AUTOMATED 297 10*3/uL (130-400); RED BLOOD COUNT 4.69 10*6/uL (4.50-5.90); RED CELL DISTRI WIDTH 13.6 % (0-14.5); WHITE BLOOD COUNT 7.2 10*3/uL (4.8-10.8)
== END | disposition home or self-care (01) ==
LOC: LAB 10:22
PROVIDERS: ATTEND Internal Medicine Critical Care Medicine
DX: Z79.899 Other long term (current) drug therapy (principal)

== ENCOUNTER → 2023-09-02 | Outpatient (CLI) | payer OTHER | END | disposition home or self-care (01) | LOC: RAD 11:06 | PROVIDERS: ATTEND Internal Medicine | DX: R07.1 Chest pain on breathing (principal) ==

== ENCOUNTER 2024-02-13 15:33 | Emergency (ER) | payer OTHER ==
[~2024-02-13] VITALS: Ht 185.4 cm; Wt 81.6 kg
[2024-02-13] MEDS ORDERED: Ketorolac Tromethamine 60 MG/2 ML VIAL IM ONE (16:00)
[2024-02-13] MEDS ORDERED: Dexamethasone Sodium Phospha 20 MG/5 ML VIAL IM ONE (16:00)
[2024-02-13] MEDS ORDERED: CYCLOBENZAPRINE5 M3 PO (18:00)
[2024-02-13] MEDS ORDERED: MELOXICAM15 MG PO (18:00)
== END 2024-02-13 18:16 | disposition home or self-care (01) ==
LOC: ED 15:33
DX: M62.830 Muscle spasm of back (principal); I21.4 Non-ST elevation (NSTEMI) myocardial infarction; K21.9 Gastro-esophageal reflux disease without esophagitis; J44.9 Chronic obstructive pulmonary disease, unspecified; I10 Essential (primary) hypertension; F41.9 Anxiety disorder, unspecified; E78.00 Pure hypercholesterolemia, unspecified; F31.9 Bipolar disorder, unspecified; Z98.890 Other specified postprocedural states; F17.210 Nicotine dependence, cigarettes, uncomplicated

== ENCOUNTER 2024-07-04 13:57 | Emergency (ER) | payer OTHER ==
[~2024-07-04] VITALS: Ht 185.4 cm; Wt 82.6 kg
[~2024-07-04 13:57] MED LIST changes: +CYCLOBENZAPRINE5 M3 PO; +MELOXICAM15 MG PO
[2024-07-04] MEDS ORDERED: Acetaminophen/Oxycodone 5 MG/325 MG TABLET PO ONE (15:00)
[2024-07-04] MEDS ORDERED: PREDNISONE20 M1 PO (15:03)
[2024-07-04] MEDS ORDERED: methylPREDNISolone sod succ 125 MG VIAL IM ONE (15:05)
== END 2024-07-04 15:16 | disposition home or self-care (01) ==
LOC: ED 13:57
DX: M54.42 Lumbago with sciatica, left side (principal); M25.512 Pain in left shoulder; J44.9 Chronic obstructive pulmonary disease, unspecified; K21.9 Gastro-esophageal reflux disease without esophagitis; E87.6 Hypokalemia; E87.1 Hypo-osmolality and hyponatremia; I10 Essential (primary) hypertension; F41.9 Anxiety disorder, unspecified; E78.00 Pure hypercholesterolemia, unspecified; F31.9 Bipolar disorder, unspecified; F10.10 Alcohol abuse, uncomplicated; F17.200 Nicotine dependence, unspecified, uncomplicated; Z98.890 Other specified postprocedural states

== ENCOUNTER → 2024-08-02 | Outpatient (CLI) | payer OTHER ==
[~2024-08-02] MED LIST changes: +DULOXETINE HCL60 MG PO; +GABAPENTIN800 MG PO; +LORAZEPAM1 MG PO; +MONTELUKAST SOD10 MG PO
== END | disposition home or self-care (01) ==
LOC: CT 10:57
PROVIDERS: ATTEND Internal Medicine Critical Care Medicine
DX: Z12.2 Encounter for screening for malignant neoplasm of respiratory organs (principal); J44.9 Chronic obstructive pulmonary disease, unspecified; J45.50 Severe persistent asthma, uncomplicated; J30.89 Other allergic rhinitis; R91.1 Solitary pulmonary nodule; R63.4 Abnormal weight loss; Z87.891 Personal history of nicotine dependence

== ENCOUNTER → 2024-08-07 | Outpatient (CLI) | payer OTHER | END | disposition home or self-care (01) | LOC: WOUNDCARE 01:57 | PROVIDERS: ATTEND Nurse Practitioner Family | DX: S60.422A Blister (nonthermal) of right middle finger, initial encounter (principal); L03.011 Cellulitis of right finger; I10 Essential (primary) hypertension; E78.00 Pure hypercholesterolemia, unspecified; J44.9 Chronic obstructive pulmonary disease, unspecified; K21.9 Gastro-esophageal reflux disease without esophagitis; E55.9 Vitamin D deficiency, unspecified; F32.A Depression, unspecified; F41.9 Anxiety disorder, unspecified; F17.210 Nicotine dependence, cigarettes, uncomplicated; Z79.899 Other long term (current) drug therapy; X58.XXXA Exposure to other specified factors, initial encounter; Y93.89 Activity, other specified; Y92.89 Other specified places as the place of occurrence of the external cause; Y99.8 Other external cause status ==

== ENCOUNTER → 2025-06-20 | Outpatient (CLI) | payer OTHER ==
[~2025-06-20] MED LIST changes: +BARIUM SULFATE 98% 340 GM BOT PO ONE
== END ==
LOC: RAD/SH 06-19 09:00
PROVIDERS: ATTEND Internal Medicine
DX: R13.10 Dysphagia, unspecified (principal)